=== PATIENT | male | born 1960 | race American Indian/Alaskan Native ===

== ENCOUNTER 2016-03-14 18:06 | Emergency (ER) | payer MEDICARE ==
--- NOTE | 2016-03-14 19:09 | Emergency Department Report ---
Chief Complaint: Extremity Injury, Lower Stated Complaint: TOE BLEEDING Time Seen by Provider: 03/14/16 18:54 - HPI History of Present Illness: Patient here reports that he has a small cut on his left small toe that is bleeding. He said he does not know what happened. Reports pain 6 out of 10. Patient is a dialysis patient and his vascular doctor is AND follow this is Dr. Andrae Ferr[facility]. He said they had to Remove his penis at some point .he is a history of poor circulation. Right below-knee amputation Patient is legally blind . He has a left forearm fistula. - ROS Review of Systems: All systems are negative unless stated in HPI above. - Exam Vital Signs: Vital Signs 03/14/16 18:18 Temperature 97.9 F Pulse Rate 100 H Respiratory 18 Rate Blood Pressure 155/100 O2 Sat by Pulse 100 Oximetry Physical Exam: General: This is a 56-year-old male well-nourished well-developed and nontoxic in appearance. CV: S1, S2. Regular rate and rhythm. Extremity: Patient has prosthesis to right lower extremity. Unable to palpate left DP and PT pulses. Left foot is cool to touch.. Unable to obtain DP and PT pulses with ultrasound. No broken skin to dorsal aspect of the distal left small toe. MSE screening note: Focused history and physical exam performed. Due to findings the following was ordered:see mdm ED Medical Decision Making - Medical Decision Making Medical decision making: Patient seen by provider in triage area. Appropriate protocol activated and patient to main ED to be seen by physician. ED Disposition for MSE Condition: Stable
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
[2016-03-14] MEDS ORDERED: TRIPLE ANTIBIOTIC TP ONE ×2 (22:06→22:18)
[2016-03-14 22:08] LABS: Hemoglobin 11.2 gm/dl (11.8-15.2); Mean Corpuscular HGB Conc 32 % (32-34); Mean Corpuscular Hemoglobin 28 pg (28-32); Mean Corpuscular Volume 88 fl (84-94); Platelet Count 155 K/mm3 (140-440); Red Cell Distribution Width 18.2 % (13.2-15.2); White Blood Count 8.2 K/mm3 (4.5-11.0)
[2016-03-14 22:21] LABS: INR 0.98 (0.87-1.13)
[2016-03-14 22:22] LABS: Partial Thromboplastin Time 29.2 Sec. (24.2-36.6)
[2016-03-14 22:33] LABS: BUN/Creatinine Ratio 6.86; Calcium 8.1 mg/dL (8.4-10.2); Chloride 98.5 mmol/L (98-107)
[2016-03-15 00:22] VITALS: BP 178/95
== END 2016-03-15 00:22 | disposition home or self-care (01) ==
LOC: ED 18:06
DX: I12.0 Hypertensive chronic kidney disease with stage 5 chronic kidney disease or end stage renal disease (principal); N18.6 End stage renal disease; I50.9 Heart failure, unspecified; E11.9 Type 2 diabetes mellitus without complications; X58.XXXA Exposure to other specified factors, initial encounter; Y93.89 Activity, other specified; Y92.89 Other specified places as the place of occurrence of the external cause; Y99.8 Other external cause status
CPT/HCPCS: 36415; 80048; 85025; 85610; 85730; 99283; A6250

== ENCOUNTER 2016-08-24 11:19 | Emergency (ER) | payer MEDICARE ==
--- NOTE | 2016-08-24 13:18 | Emergency Department Report ---
Chief Complaint: Fall Stated Complaint: FALL Time Seen by Provider: 08/24/16 12:57 - HPI History of Present Illness: PT states he fell from wheelchair when leaving HD on Tuesday. PT states he landed on his left arm. PT states he is still having pain in his L arm. PT states he had a spot of infection on his Left leg that opened up after he fell. - ROS Review of Systems: + l arm pain + L 5th finger pain and swelling + wound to lle + fatigue - Exam Vital Signs: Vital Signs 08/24/16 11:52 Temperature 98.7 F Pulse Rate 85 Respiratory 20 Rate Blood Pressure 183/98 O2 Sat by Pulse 98 Oximetry Physical Exam: pt has ulcer to LLE PT has abrasion to L fa L elbow ttp L 5th finger ttp MSE screening note: Focused history and physical exam performed. Due to findings the following was ordered: xr, labs ED Disposition for MSE Condition: Stable Referrals: PRIMARY CARE, [Primary Care Provider] - 3-5 Days
[2016-08-24 13:43] LABS: Basophils % (Auto) 0.9 % (0.0-1.8); Eosinophils % (Auto) 1.5 % (0.0-4.3); Hematocrit 37.5 % (35.5-45.6); Hemoglobin 12.2 gm/dl (11.8-15.2); Mean Corpuscular HGB Conc 32 % (32-34); Mean Corpuscular Hemoglobin 30 pg (28-32); Mean Corpuscular Volume 93 fl (84-94); Platelet Count 150 K/mm3 (140-440); Red Blood Count 4.03 M/mm3 (3.65-5.03); Red Cell Distribution Width 14.6 % (13.2-15.2); White Blood Count 10.2 K/mm3 (4.5-11.0)
[2016-08-24 14:29] LABS: BUN/Creatinine Ratio 5.07; Calcium 9.2 mg/dL (8.4-10.2); Chloride 94.4 mmol/L (98-107); Potassium 4.5 mmol/L (3.6-5.0)
--- NOTE | 2016-08-24 14:36 | XRay Report ---
Left elbow 3 views: History: Pain status post fall. Findings: No articular abnormality. No fracture or dislocation or joint effusion. Impression: No evidence of acute fracture.
--- NOTE | 2016-08-24 14:36 | XRay Report ---
Left forearm 2 views: History: Pain status post fall. Findings: No fracture previous region of the dictation. Impression: No evidence of acute fracture.
--- NOTE | 2016-08-24 14:37 | XRay Report ---
Left tibia-fibula 2 views: History: Pain. Findings: No previous studies lytic lesion or fracture. No soft tissue calcification. Impression: Essentially negative left tibia-fibula.
--- NOTE | 2016-08-24 14:37 | XRay Report ---
Left hand 3 views: History: Pain. Findings: No articular abnormality. No fracture or dislocation. No periosteal reaction. No abnormal soft tissue calcification. Impression: No definite bony or articular abnormality left hand.
[2016-08-24] MEDS ORDERED: PROTONIX PO ONE (17:37)
[2016-08-24] MEDS ORDERED: LOVENOX SUB-Q ONE (17:37)
[2016-08-24] MEDS ORDERED: PROTONIX IV ONE (17:39)
[2016-08-24] MEDS ORDERED: NORCO 7.5/325 PO ONE (19:08)
[2016-08-24] MEDS ORDERED: FLEXERIL PO ONE (19:08)
[2016-08-24 19:27] VITALS: BP 178/85
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
== END 2016-08-24 19:50 | disposition home or self-care (01) ==
LOC: ED 11:19
DX: M79.632 Pain in left forearm (principal); M79.642 Pain in left hand; M79.662 Pain in left lower leg; W06.XXXA Fall from bed, initial encounter; Y93.9 Activity, unspecified; Y92.9 Unspecified place or not applicable; Y99.9 Unspecified external cause status
CPT/HCPCS: 36415; 80048; 82962; 85025; 99284; C9113; J1650